=== PATIENT | female | born 1980 | race Caucasian/White ===

== ENCOUNTER → 2017-03-23 | Outpatient (CLI) | payer OTHER ==
[~2017-03-23] MED LIST: CPR500 PO; PHEN-876 PO; REVIEWED
[2017-03-23 14:40] LABS: BASO % 0.3 %; BASO ABS # 0.03 K/uL (0-0.2); EOS % 0.7 %; EOS ABS # 0.08 K/uL (0-0.5); HEMATOCRIT 36.1 % (37-47); HEMOGLOBIN 12.3 g/dL (12.0-16.0); IG# 0.04 K/uL (0.00-0.02); LYMPH % 18.9 %; LYMPH ABS # 2.08 K/uL (1.2-3.4); MEAN CELL VOLUME 89.8 fL (80-100); MEAN CORPUSCULAR HEMOGLOBIN 30.6 pg (25-34); MEAN CORPUSCULAR HGB CONC 34.1 g/dl (32-36); MEAN PLATELET VOLUME 10.2 fL (7.4-10.4); MONO % 4.5 %; MONO ABS # 0.49 K/uL (0.11-0.59); NEUT % 75.2 %; NEUT ABS # 8.27 K/uL (1.4-6.5); PLATELET COUNT 251 K/uL (130-400); RED CELL DISTRIBUTION WIDTH CV 13.6 % (11.5-14.5); RED CELL DISTRIBUTION WIDTH SD 44.4 fL (36.4-46.3); WHITE BLOOD COUNT 10.99 K/uL (4.8-10.8)
== END | disposition home or self-care (01) ==
LOC: C.LAB 11:39
PROVIDERS: ATTEND Obstetrics & Gynecology
DX: Z34.82 Encounter for supervision of other normal pregnancy, second trimester (principal)

== ENCOUNTER → 2017-06-02 | Outpatient (CLI) | payer OTHER | END | disposition home or self-care (01) | LOC: C.LABSPEC 14:44 | PROVIDERS: ATTEND Obstetrics & Gynecology | DX: Z34.83 Encounter for supervision of other normal pregnancy, third trimester (principal) ==

== ENCOUNTER 2017-06-21 11:30 | Inpatient (IN) | payer OTHER ==
[~2017-06-21] VITALS: Ht 165.1 cm; Wt 66.4 kg
[2017-06-21] MEDS ORDERED: PRENTAB26 PO (12:02)
[2017-06-21 12:05] VITALS: Ht 165.1 cm; Wt 66.4 kg
[2017-06-21 13:08] LABS: HEMATOCRIT 40.5 % (37-47); HEMOGLOBIN 13.7 g/dL (12.0-16.0); MEAN CORPUSCULAR HEMOGLOBIN 30.4 pg (25-34); MEAN CORPUSCULAR HGB CONC 33.8 g/dl (32-36); MEAN PLATELET VOLUME 10.9 fL (7.4-10.4); PLATELET COUNT 184 K/uL (130-400); RED CELL DISTRIBUTION WIDTH CV 13.9 % (11.5-14.5); RED CELL DISTRIBUTION WIDTH SD 45.2 fL (36.4-46.3); WHITE BLOOD COUNT 10.74 K/uL (4.8-10.8)
[2017-06-21] MEDS ORDERED: DINOPROSTONE 10 MG INSERT PV ONE (18:15)
[2017-06-22] MEDS ORDERED: BUPIVACAINE 0.25% 30 ML VIAL ONE (07:57)
[2017-06-22] MEDS ORDERED: FENTANYL CITRATE INJ 50 MCG/1 ML 2 ML VIAL ONE (07:58)
[2017-06-22] MEDS ORDERED: FENTANYL 2MCG/ML ROPIV 1.25MG/ML 100ML BAG EPI ONE (07:58)
[2017-06-22] MEDS ORDERED: EpHEDrine SULFATE INJ 50 MG/ML AMP ONE (07:58)
[2017-06-22] MEDS: LACTATED RINGER'S 1000ML 1,000 ML IV PRN ×2 (08:18→09:55)
[2017-06-22] MEDS ORDERED: NALOXONE HCL INJ 1 MG in SODIUM CHLORIDE 0.9% 1000ML 1,000 ML IV PRN (09:17)
[2017-06-22] MEDS ORDERED: LACTATED RINGER'S 1000ML 500 ML IV PRN ×2 (09:17→09:37)
[2017-06-22] MEDS ORDERED: EpHEDrine SULFATE INJ 50 MG/ML AMP IV PRN (09:30)
[2017-06-22] MEDS ORDERED: FENTANYL 2MCG/ML ROPIV 1.25MG/ML 100ML BAG EPI PRN (09:30)
[2017-06-22] MEDS ORDERED: DiphenhydrAMINE HCL 50 MG/ML VIAL IV PRN (09:30)
[2017-06-22] MEDS ORDERED: NALBUPHINE HCL INJ 10 MG/ML AMP IV PRN (09:30)
[2017-06-22] MEDS ORDERED: NALOXONE HCL INJ 0.4 MG/1 ML VIAL/CARP IV PRN (09:30)
[2017-06-22] MEDS ORDERED: ONDANSETRON INJ 2 MG/ML 2 ML VIAL IV PRN (09:30)
[2017-06-22] MEDS ORDERED: OXYTOCIN 30 UNITS/500ML NSS IV PRN ×2 (09:45→16:00)
[2017-06-22] MEDS ORDERED: ACETAMINOPHEN 325 MG TAB PO PRN (16:00)
[2017-06-22] MEDS ORDERED: OXYCODONE/ACETAMINOPHEN 5-325 TAB PO PRN (16:00)
[2017-06-22] MEDS ORDERED: LANOLIN OINT EXT PRN (16:00)
[2017-06-22] MEDS ORDERED: SUPERCREAM 0.870 % 15GM JAR EXT PRN (16:00)
[2017-06-22] MEDS ORDERED: HYDROCORTISONE ACETATE 25 MG SUPP PR PRN (16:00)
[2017-06-22] MEDS ORDERED: BENZOCAINE 20% AER SPR 82.5 GM CAN EXT PRN (16:00)
[2017-06-22] MEDS ORDERED: ACETAMINOPHEN/CODEINE 300/30MG TAB PO PRN ×2 (16:00)
--- NOTE | 2017-06-22 16:26 | DELIVERY SUMMARY ---
DATE OF OPERATION: 06/22/2017 CHIEF COMPLAINT: The patient is a 35-year-old 2, para 1, had 1 previous spontaneous AB. The patient is in good general health, was a smoker, stopped with . Blood type is O positive, rubella immune, vaginal beta strep negative. Due date is 06/28/2017. HOSPITAL COURSE: The patient was admitted with obdulio rupture of the membranes and a posterior unripe cervix. She requested to labor on her own for a while, we let her labor for about 10 hours at which time the contractions started to space and became less intense. The cervix was unchanged. We decided at this time to go with the Cervidil tape. We placed a Cervidil tape. We checked her about 5 hours after placing the tape, there was really no change and then during the night and first thing in the morning she stated that about 3 hours prior to my coming into her room, the contractions started to get hard and then the cervix now was about 1.5 cm which during the exam, easily stretched to about 4. She also prior to the exam in the morning, she had an epidural put in and she had better control of her pain. We then augmented with IV Pitocin. She established a good regular pattern, went to full dilatation, and in an hour, pushed out a live male via direct occiput anterior position over an intact perineum. Pitocin had to be turned off right at the end due to some episodes of bradycardia and she was given some mask oxygen. After delivery of the head, the infant was suctioned through the mouth and the nose. There was a tight nuchal cord which could not be reduced over the head, it was clamped and cut. Then with a one push, the body of the infant was delivered without difficulty. My own estimation 1 and 5 minute Apgars were 8 and 9, respectively. Cord blood was taken. With IV Pitocin running, the placenta was removed intact. Inspection of the perineum revealed no lacerations, no bleeding, and cord blood was taken and sent for exam. ESTIMATED BLOOD LOSS: 100 mL. I attest to the content of the Intraoperative Record and any orders documented therein. Any exception s are noted below.
--- NOTE | 2017-06-22 16:40 | Anesthesiology Progress Note ---
Anesthesia Post Op Note Date & Time Jun 22, 2017 at 16:40 Vital Signs Pain Intensity: 6.0 Notes Mental Status: alert / awake / arousable, participated in evaluation Pt Amnestic to Procedure: Yes Nausea / Vomiting: adequately controlled Pain: adequately controlled Airway Patency, RR, SpO2: stable & adequate BP & HR: stable & adequate Hydration State: stable & adequate Neuraxial Anesthesia: was administered, sensory block is resolving Anesthetic Complications: no major complications apparent
[2017-06-22] MEDS ORDERED: DIPHTHERIA/TETANUS/PERTUSSIS 0.5 ML SYR/VIAL IM. ONE (18:00)
[2017-06-22 19:15] VITALS: BP 118/72; PULSE 63; TEMP 36.7; O2SAT 97
[2017-06-22] MEDS: DOCUSATE SODIUM 100 MG CAP PO SCH (20:22)
[2017-06-22] MEDS: IBUPROFEN 600 MG TAB PO PRN (21:10)
[2017-06-22 23:20] VITALS: BP 117/74; PULSE 73; TEMP 36.5; O2SAT 98
[2017-06-23 03:40] VITALS: BP 99/68; PULSE 73; TEMP 36.9; O2SAT 97
[2017-06-23] MEDS: IBUPROFEN 600 MG TAB PO PRN ×3 (05:04→19:36)
[2017-06-23 07:04] LABS: HEMATOCRIT 34.3 % (37-47); HEMOGLOBIN 11.6 g/dL (12.0-16.0)
[2017-06-23] MEDS: PRENATAL VITAMIN TAB PO SCH (07:51)
[2017-06-23] MEDS: DOCUSATE SODIUM 100 MG CAP PO SCH ×2 (07:52→19:35)
[2017-06-23] MEDS: FERROUS SULFATE 325 MG TAB PO SCH (07:52)
[2017-06-23 08:00] VITALS: BP 89/68; PULSE 79; TEMP 36.7
--- NOTE | 2017-06-23 09:15 | Progress Note ---
Subjective Jun 23, 2017. Subjective conversation w/ patient Ambulation: ambulating normally Voiding: no voiding problems Passing Gas: Yes Diet Tolerance: Regular Diet Lochia: Small Feeding Type: Breast Feeding Review of Systems Constitutional: + fever Objective Vital Signs Date Time Temp Pulse Resp B/P (MAP) Pulse Ox O2 Delivery O2 Flow Rate FiO2 06/23/17 08:00 36.7 79 16 89/68 (75) Room Air 06/23/17 03:40 36.9 73 18 99/68 (78) 97 Room Air 06/22/17 23:20 36.5 73 18 117/74 (88) 98 Room Air 06/22/17 23:20 98 Room Air 06/22/17 19:15 Room Air 06/22/17 19:15 36.7 63 16 118/72 (87) 97 Room Air Physical Exam General Appearance: WELL-APPEARING Abdomen: non tender Fundus: Firm, Non-Tender Extremities: no pedal edema, no calf tenderness Laboratory Results Last 24 Hours Test 06/23/17 06:46 Hemoglobin 11.6 g/dL Hematocrit 34.3 % Assessment and Plan Post- Day#: 1
[2017-06-23 12:55] VITALS: BP 104/59; PULSE 79; TEMP 36.7
[2017-06-23 15:40] VITALS: BP 97/67; PULSE 59; TEMP 36.4
[2017-06-23] MEDS ORDERED: BISACODYL 5 MG TABEC PO SCH (20:00)
[2017-06-23 23:50] VITALS: BP 100/65; PULSE 60; TEMP 36.4; O2SAT 99
[2017-06-24] MEDS: IBUPROFEN 600 MG TAB PO PRN (05:14)
[2017-06-24] MEDS ORDERED: BISACODYL 10 MG SUPP PR PRN (07:00)
[2017-06-24 07:45] VITALS: BP 102/66; TEMP 36.8
[2017-06-24] MEDS: DOCUSATE SODIUM 100 MG CAP PO SCH (08:27)
[2017-06-24] MEDS: FERROUS SULFATE 325 MG TAB PO SCH (08:27)
[2017-06-24] MEDS: PRENATAL VITAMIN TAB PO SCH (08:27)
--- NOTE | 2017-06-24 12:12 | Progress Note ---
Subjective Jun 24, 2017. Subjective conversation w/ patient Ambulation: ambulating normally Voiding: no voiding problems Passing Gas: Yes Diet Tolerance: Regular Diet Lochia: Small Feeding Type: Breast Feeding Review of Systems Constitutional: + fever Objective Vital Signs Date Time Temp Pulse Resp B/P (MAP) Pulse Ox O2 Delivery O2 Flow Rate FiO2 06/24/17 07:45 36.8 20 102/66 (78) 06/23/17 23:50 Room Air 06/23/17 23:50 36.4 60 16 100/65 (77) 99 Room Air 06/23/17 15:40 Room Air 06/23/17 15:40 36.4 59 20 97/67 (77) Room Air 06/23/17 12:55 36.7 79 22 104/59 (74) Physical Exam General Appearance: WELL-APPEARING Fundus: Firm, Non-Tender Extremities: no pedal edema, no calf tenderness Assessment and Plan Post- Day#: 2
--- NOTE | 2017-06-24 12:14 | Discharge Instructions ---
Discharge Instructions Date of Service Jun 24, 2017. Admission Reason for Admission: Rupture Of Membranes With Delay Of Delivery Discharge Discharge Diagnosis / Problem: ruptured membranes Discharge Goals Goal(s): Routine recovery after delivery Activity Recommendations Activity Limitations: as noted below ACTIVITY RECOMMENDATIONS: * Gradual return to full activity over the next 2-3 weeks. * No lifting - nothing heavier than baby over the next 2-3 weeks. * Do not engage in vigorous exercise, sexual activity or sports until cleared by your physician. * Do not drive or operate any motorized equipment until cleared by your physician. * You may shower/bathe daily. DIET: Resume Previous Diet If Breast-feeding: * Increase caloric intake by 500 calories, eat 3 well balanced meals, 2 high protein snacks a day and drink 6-8 8oz. glasses of fluid per day. BREAST CARE: If you are not breast feeding: * Wear a supportive bra 24 hours a day for one to two weeks. * Avoid stimulating your breasts and nipples as much as possible during the first few weeks after delivery. * When taking a shower, have the warm water hit your back, not breasts. * When your breasts feel full, apply ice packs. Usually three to four times a day helps ease the discomfort. * Take a mild pain medication (Tylenol / Motrin) when you are uncomfortable. If breast feeding: * Use breast milk to lubricate nipples. Lansinoh cream may be used for sore nipples. You do not need to remove cream prior to breast feeding. If using a different brand of cream, check the label for directions regarding removal of cream prior to nursing. * Wear a supportive bra. * If having problems with breasts or breast feeding, call a [employer] payroll consultant or your health care provider. OVER THE COUNTER MEDICATION: * For discomfort or pain, you may use Acetaminophen (Tylenol), Ibuprofen (Advil ), or Naproxen (Aleve) following the package directions. * For constipation you may use Colace following the package directions. SPECIAL CARE INSTRUCTIONS: * Vaginal rest (no tampons, douching, intercourse) until after doctor 's visit. * control as discussed with doctor. * Verbalizes understanding of car seat law as reviewed with patient nursing. * Car Seat hand-out given and reviewed with patient by nursing. * Shaken baby information reviewed with patient by nursing. Call you doctor if: * Temperature greater than or equal to 100.4 degrees F or 38.0 degrees C. Take your temperature twice daily for a week. * Bleeding becomes heavier than the heaviest part of your period - saturating a sanitary pad within an hour. * Passing large clots. * Bleeding has a foul smelling odor. * Signs and symptoms of phlebitis: leg pain, warm, red or swollen area on leg. * "Baby Blues" lasting longer than two weeks. ++ If you have had a and incision has increased pain, redness, swelling, presence of any drainage, or if the incision starts to open up. If you have any questions or concerns, call your health care practitioner at [phone]. FOLLOW-UP VISIT: Please call the office at to schedule a 6 week examination. . Instructions / Follow-Up Instructions / Follow-Up ACTIVITY RECOMMENDATIONS: * Gradual return to full activity over the next 2-3 weeks. * No lifting - nothing heavier than baby over the next 2-3 weeks. * Do not engage in vigorous exercise, sexual activity or sports until cleared by your physician. * Do not drive or operate any motorized equipment until cleared by your physician. * You may shower/bathe daily. DIET: Resume Previous Diet If Breast-feeding: * Increase caloric intake by 500 calories, eat 3 well balanced meals, 2 high protein snacks a day and drink 6-8 8oz. glasses of fluid per day. BREAST CARE: If you are not breast feeding: * Wear a supportive bra 24 hours a day for one to two weeks. * Avoid stimulating your breasts and nipples as much as possible during the first few weeks after delivery. * When taking a shower, have the warm water hit your back, not breasts. * When your breasts feel full, apply ice packs. Usually three to four times a day helps ease the discomfort. * Take a mild pain medication (Tylenol / Motrin) when you are uncomfortable. If breast feeding: * Use breast milk to lubricate nipples. Lansinoh cream may be used for sore nipples. You do not need to remove cream prior to breast feeding. If using a different brand of cream, check the label for directions regarding removal of cream prior to nursing. * Wear a supportive bra. * If having problems with breasts or breast feeding, call a [employer] payroll consultant or your health care provider. OVER THE COUNTER MEDICATION: * For discomfort or pain, you may use Acetaminophen (Tylenol), Ibuprofen (Advil ), or Naproxen (Aleve) following the package directions. * For constipation you may use Colace following the package directions. SPECIAL CARE INSTRUCTIONS: * Vaginal rest (no tampons, douching, intercourse) until after doctor 's visit. * control as discussed with doctor. * Verbalizes understanding of car seat law as reviewed with patient nursing. * Car Seat hand-out given and reviewed with patient by nursing. * Shaken baby information reviewed with patient by nursing. Call you doctor if: * Temperature greater than or equal to 100.4 degrees F or 38.0 degrees C. Take your temperature twice daily for a week. * Bleeding becomes heavier than the heaviest part of your period - saturating a sanitary pad within an hour. * Passing large clots. * Bleeding has a foul smelling odor. * Signs and symptoms of phlebitis: leg pain, warm, red or swollen area on leg. * "Baby Blues" lasting longer than two weeks. ++ If you have had a and incision has increased pain, redness, swelling, presence of any drainage, or if the incision starts to open up. If you have any questions or concerns, call your health care practitioner at [phone]. FOLLOW-UP VISIT: Please call the office at to schedule a 6 week examination. Current Hospital Diet Patient's current hospital diet: Regular OB Diet Discharge Diet Recommended Diet: Regular Diet Pending Studies Studies pending at discharge: no Medical Emergencies . Who to Call and When: Medical Emergencies: If at any time you feel your situation is an emergency, please call 911 immediately. . Non-Emergent Contact Non-Emergency issues call your: [employer] Call Non-Emergent contact if: temperature is above 100.5 . . "Provider Documentation" section prepared by Robert Souza. .
[2017-06-24 14:10] VITALS: BP_DIAS 66; PULSE 60; TEMP 36.8
== END 2017-06-24 14:12 | disposition home or self-care (01) | DRG 775 ==
LOC: C.OPB 11:30 → C.LD 11:30 → C.OPB 12:39 → C.LD 12:39 → C.OBG 06-22 19:09
PROVIDERS: ADMIT Obstetrics & Gynecology; ATTEND Obstetrics & Gynecology
PROC: 10E0XZZ Delivery of Products of Conception, External Approach (ICD-10-PCS; principal; 2017-06-22)
DX: O42.02 Full-term premature rupture of membranes, onset of labor within 24 hours of rupture (principal); O69.1XX0 Labor and delivery complicated by cord around neck, with compression, not applicable or unspecified; Z37.0 Single live birth; Z3A.39 39 weeks gestation of pregnancy